=== PATIENT | male | born 1950 | race Caucasian/White ===

== ENCOUNTER 2016-12-11 15:58 | Emergency (ER) | payer MEDICARE, OTHER ==
[~2016-12-11] VITALS: Ht 185.4 cm; Wt 100.8 kg
[~2016-12-11 15:58] MED LIST: CETI5TAB11 PO; FAMO20TA79 PO
[2016-12-11 16:06] VITALS: Ht 185.4 cm; Wt 100.8 kg
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
[2016-12-11] MEDS ORDERED: TAMS0.4C47 PO (16:28)
[2016-12-11] MEDS ORDERED: TETANUS + DIPHTHERIA (Td)(Adult) 0.5ml SYRINGE IM ONE (16:30)
[2016-12-11] MEDS ORDERED: HYDROCODONE/APAP 5 mg/325 mg TABLET PO ONE (17:15)
--- NOTE | 2016-12-11 17:16 | NUR ---
Vik moralez in [facility] - 12/11/16 at 1750 by [email or web address] ROBER GARRIDO AT [facility]
[2016-12-11] MEDS ORDERED: HYDR-4246 PO (18:12)
[2016-12-11 18:29] VITALS: BP 165/87; PULSE 59; RESP 16; TEMP 97.8; O2SAT 94
--- NOTE | 2016-12-12 09:49 | DI ---
Indication: ITS.REASON: left shoulder pain PROCEDURE: SHOULDER LEFT 2-3 VIEWS: Encounter: Initial Comparison: None Findings: Acute mildly displaced fracture of the distal clavicle. No dislocation. AC joint width appears normal. Old healed mid clavicular deformity. Impression: Closed posttraumatic distal clavicular fracture. There is a preliminary report by [facility]. .
--- NOTE | 2016-12-12 09:51 | DI ---
Indication: ITS.REASON: left rib pain PROCEDURE: RIBS LEFT WITH AP CHEST: Encounter: Initial Comparison: Left clavicle radiographs from the same time. FINDINGS: Chest: The lungs are clear. There is no abnormal airspace opacity, pleural effusion or pneumothorax identified. The heart size, pulmonary vasculature and mediastinum are within normal limits. Minimally displaced distal clavicular fracture. Old healed fracture deformity of the more proximal mid clavicle. AP and oblique views of the left ribs: No displaced rib fracture is seen. IMPRESSION: Left clavicular fracture. No acute cardiopulmonary abnormality. .
== END 2016-12-11 18:29 | disposition home or self-care (01) ==
LOC: ED 15:58
DX: S42.035A Nondisplaced fracture of lateral end of left clavicle, initial encounter for closed fracture (principal); S50.312A Abrasion of left elbow, initial encounter; S80.212A Abrasion, left knee, initial encounter; V17.0XXA Pedal cycle driver injured in collision with fixed or stationary object in nontraffic accident, initial encounter; Y93.55 Activity, bike riding; Y92.89 Other specified places as the place of occurrence of the external cause; Y99.8 Other external cause status
CPT/HCPCS: 71101; 73030; 90471; 90714; 99283; A6021; A9270

== ENCOUNTER → 2016-12-16 | Outpatient (CLI) | payer MEDICARE, OTHER ==
[~2016-12-16] MED LIST changes: -CETI5TAB11 PO; -FAMO20TA79 PO; +HYDR-4246 PO; +IOHEXOL 350 MG/ML 75ml INJECTION ONE; +NORMAL SALINE 100 ML ONE; +SALINE FLUSH 10ml SYRINGE ONE; +TAMS0.4C47 PO
[2016-12-16 16:05] LABS: ANION GAP 13 MEQ/L (5-15); BUN/CREATININE RATIO 12 RATIO (6-26); CALCIUM 10.7 MG/DL (8.4-10.2); CHLORIDE 104 MEQ/L (98-107); CO2 - CARBON DIOXIDE 29 MEQ/L (22-30); CREATININE 1.1 MG/DL (0.8-1.5); GLOMERULAR FILTRATION RATE 67; GLUCOSE 115 MG/DL (75-110); POTASSIUM 4.2 MEQ/L (3.6-5); SODIUM 146 MEQ/L (134-144)
--- NOTE | 2016-12-16 16:52 | DI ---
Indication: ITS.REASON: R06.00 DYSPNEA; R89.9 ABNORMAL LAB WORK PROCEDURE: CTA PULMONARY EMBOLI: Encounter: Initial Comparison: None Technique: Axial CT pulmonary angiographic phase images were performed through the chest after the administration of intravenous contrast. Coronal and Sagittal MIP reconstructed images were created and reviewed. Automated Exposure Control and Iterative Reconstruction dose reducing techniques were utilized. Contrast: Omnipaque 350 70 mL Findings: Pulmonary arteries: Exam is diagnostic to the subsegmental pulmonary arterial level. No filling defects identified to suggest a pulmonary embolus. Other findings: The lungs are clear. No consolidation, pleural effusion or pneumothorax. The central airways are patent. Increased number of nonenlarged left axillary lymph nodes. No mediastinal adenopathy. Heart size is normal. No pericardial effusion. Large bilobed cyst in the right hepatic dome measuring up to 4.7 cm in diameter. Multiple gallstones present. No acute findings in the upper abdomen. There is a nondisplaced fracture of the left anterior sixth rib. Impression: 1. No pulmonary embolus or acute intrathoracic disease process. 2. Nondisplaced left anterior sixth rib fracture. .
== END ==
LOC: LAB 13:27
PROVIDERS: ATTEND Family Medicine
DX: S22.32XA Fracture of one rib, left side, initial encounter for closed fracture (principal); R06.00 Dyspnea, unspecified; R89.9 Unspecified abnormal finding in specimens from other organs, systems and tissues
CPT/HCPCS: 36415; 71275; 80048; 85379; J7050; Q9967